=== PATIENT | female | born 1945 | race Caucasian/White ===

== ENCOUNTER 2018-10-09 08:18 | Outpatient (CLI) | payer MEDICARE ==
--- NOTE | 2018-10-10 09:51 | MRI ---
BILATERAL BREAST MRI WITH AND WITHOUT IV CONTRAST AND EVALUATION ON INDEPENDENT WORK STATION: HISTORY: A 73-year-old female with left nipple discharge. The patient has a history of breast cancer. FINDINGS: Correlation is made with the mammograms of 09/20/2017 and 06/26/2018 and the left breast ultrasound of 06/26/2018. There is asymmetry in the size of the breasts, right larger than the left. A flat left nipple is see n. There is proteinaceous material (high T1 signal) in a dilated left major duct. No mass or abnorm al postcontrast enhancement is seen on either side. No lymphadenopathy is seen in the axillary or in ternal mammary chains. No skin thickening is identified. IMPRESSION: BIRADS category 2 - benign findings. Return to annual mammographic screening. Surgical consultation would be helpful. The study was interpreted in consultation with Dr. Moy Morgan who concurs. POS: OFF
== END 2018-10-09 08:19 | disposition home or self-care (01) ==
LOC: BICMRI 08:18
PROVIDERS: ATTEND Obstetrics & Gynecology
DX: N64.52 Nipple discharge (principal)
CPT/HCPCS: 82565; C8905

== ENCOUNTER 2022-05-18 11:59 | Outpatient (CLI) | payer MEDICARE | END 2022-05-18 12:00 | disposition home or self-care (01) | LOC: BICULT 11:59 | PROVIDERS: ATTEND Family Medicine | DX: R59.0 Localized enlarged lymph nodes (principal) | CPT/HCPCS: 76536 ==

== ENCOUNTER 2022-06-28 15:35 | Outpatient (CLI) | payer MEDICARE | END 2022-06-28 15:36 | disposition home or self-care (01) | LOC: BICULT 15:35 | PROVIDERS: ATTEND Family Medicine | DX: N18.31 Chronic kidney disease, stage 3a (principal) | CPT/HCPCS: 76770 ==

== ENCOUNTER 2022-07-31 10:18 | Outpatient (CLI) | payer MEDICARE | END 2022-07-31 10:19 | disposition home or self-care (01) | LOC: BICCT 10:18 | PROVIDERS: ATTEND Family Medicine | DX: N28.89 Other specified disorders of kidney and ureter (principal); K44.9 Diaphragmatic hernia without obstruction or gangrene | CPT/HCPCS: 74170; 82565 ==

== ENCOUNTER 2022-08-10 10:58 | Emergency (ER) | payer MEDICARE ==
[2022-08-10] MEDS ORDERED: FENTANYL 50 MCG/ML 1 ML VIAL ONE (12:07)
[2022-08-10] MEDS ORDERED: Ketorolac Tromethamine 30 MG/ML VIAL ONE (12:07)
== END 2022-08-10 12:45 | disposition home or self-care (01) ==
LOC: ERS 10:58
DX: S42.254A Nondisplaced fracture of greater tuberosity of right humerus, initial encounter for closed fracture (principal); W19.XXXA Unspecified fall, initial encounter; Z79.82 Long term (current) use of aspirin; Z79.899 Other long term (current) drug therapy
CPT/HCPCS: 70450; 70486; 71045; 73030; J3010; 96374; 96375; J1885